=== PATIENT | male | born 1950 | race Caucasian/White ===

== ENCOUNTER → 2017-04-08 | Outpatient (CLI) | payer MEDICARE ==
[~2017-04-08] MED LIST: ASPIRIN EC81 MG PO; BYSTOLIC10 MG PO; LIPITOR80 MG PO; MAXZIDE-751 TAB PO; NORVASC10 MG PO; PLAVIX75 MG PO; POTASSIUM99 M1 PO; ZOLOFT50 MG PO
== END | disposition disaster alternative care site (69) ==
LOC: GOPD 04-05
PROC: 3E0S33Z Introduction of Anti-inflammatory into Epidural Space, Percutaneous Approach (ICD-10-PCS; principal; 2017-04-08)
PROC: 3E0S3BZ Introduction of Anesthetic Agent into Epidural Space, Percutaneous Approach (ICD-10-PCS; 2017-04-08)
DX: M48.06 Spinal stenosis, lumbar region (principal); M54.5 Low back pain; M53.9 Dorsopathy, unspecified
CPT/HCPCS: J1040